=== PATIENT | male | born 1940 | race Caucasian/White ===

== ENCOUNTER 2024-08-13 07:29 | Observation (INO) ==
[2024-08-13 08:47] LABS: Activated Partial Thrombo Time 39.1 seconds (26.0-38.0); INR 2.71 (0.85-1.14)
[2024-08-13 08:59] LABS: Albumin 3.9 g/dL (3.2-5.2); Albumin/Globulin Ratio 1.6 (1-3); Creatinine, Serum 0.8 mg/dL (0.67-1.17); Globulin 2.4 g/dL (2-4); Potassium 3.9 mmol/L (3.5-5.0); Total Bilirubin 0.8 mg/dL (0.2-1.0); Total Protein 6.3 g/dL (6.4-8.9); eGFR CKD-EPI 87.8 (>60)
[2024-08-13] MEDS: Albuterol/Ipratropium NEB.SOL (2.5/0.5 MG) 3 ML NEB.SOLN INH ONE (09:23)
[2024-08-13 09:59] LABS: ABS Eosinophils 0.1 10^3/uL (0.0-0.5); ABS Lymphocytes 0.5 10^3/uL (1.0-4.8); ABS Monocytes 0.5 10^3/uL (0.0-1.1); ABS Neutrophils 4.1 10^3/uL (1.5-7.6); ABS Nucleated RBC 0.01 10^3/ul; Eosinophil % 1.3 %; Hematocrit 36.8 % (38-53); Hemoglobin 11.8 g/dL (13.2-16.3); Mean Corpuscular Hemoglobin 29.1 pg (27-33); Mean Corpuscular Hgb Conc 32.1 g/dL (31-36); Mean Corpuscular Volume 90.7 fL (80-97); Mean Platelet Volume 8.8 fL (7.5-11.2); Nucleated Red Blood Cells % 0.1 %/100WBC (0.0-0.8); Platelet Count 166 10^3/uL (150-450); Red Blood Count 4.06 10^6/uL (4.06-5.63); Red Cell Distribution Width 14.6 % (12-17); White Blood Count 5.2 10^3/uL (3.6-10.2)
[2024-08-13 10:01] LABS: High Sensitivity Troponin 1 Hr 16 pg/mL (<20)
[2024-08-13] MEDS: cefTRIAXone 1 gm/50 mL D5W 1 GM/50 ML BAG IV ONE (10:45)
[2024-08-13] MEDS: Azithromycin 500 mg/250 ml NS 500 MG/250 ML BAG IVPB ONE (11:36)
[2024-08-13] MEDS ORDERED: Warfarin per PHARMACY **NOTE FOLLOW UP SCH (12:00)
[2024-08-13] MEDS ORDERED: Sulfur Hexaflouride MICROSPHR 25 MG VIAL IV PRN (13:49)
[2024-08-13 15:20] LABS: C Reactive Protein 1.85 mg/L (<8.01)
[2024-08-13] MEDS: Furosemide 20 mg/2 ml IV VIAL IV SLOW PU ONE (16:06)
[2024-08-13] MEDS ORDERED: Warfarin DAILY REMINDER **NOTE FOLLOW UP SCH (17:00)
[2024-08-14 06:29] LABS: ABS Eosinophils 0.1 10^3/uL (0.0-0.5); ABS Lymphocytes 1.5 10^3/uL (1.0-4.8); ABS Monocytes 0.6 10^3/uL (0.0-1.1); ABS Neutrophils 5.1 10^3/uL (1.5-7.6); ABS Nucleated RBC 0.01 10^3/ul; Eosinophil % 1.5 %; Hematocrit 38.1 % (38-53); Hemoglobin 12.6 g/dL (13.2-16.3); INR 3.14 (0.85-1.14); Lymphocyte % 20.3 %; Mean Corpuscular Volume 90.7 fL (80-97); Mean Platelet Volume 8.7 fL (7.5-11.2); Nucleated Red Blood Cells % 0.1 %/100WBC (0.0-0.8); Platelet Count 173 10^3/uL (150-450); Red Cell Distribution Width 14.3 % (12-17); White Blood Count 7.4 10^3/uL (3.6-10.2)
[2024-08-14 06:48] LABS: Calcium 8.7 mg/dL (8.6-10.3); Creatinine, Serum 0.78 mg/dL (0.67-1.17); Potassium 4.1 mmol/L (3.5-5.0); eGFR CKD-EPI 88.5 (>60)
[2024-08-14] MEDS ORDERED: Lisinopril/HCTZ 20/12.5 TB(NF) PO SCH (09:00)
[2024-08-14] MEDS: Azithromycin 500 mg/250 ml NS 500 MG/250 ML BAG IVPB SCH (10:04)
[2024-08-14] MEDS: cefTRIAXone 1 gm/50 mL D5W 1 GM/50 ML BAG IV SCH (11:31)
[2024-08-15 06:20] LABS: ABS Lymphocytes 0.6 10^3/uL (1.0-4.8); ABS Monocytes 0.5 10^3/uL (0.0-1.1); ABS Neutrophils 4.7 10^3/uL (1.5-7.6); Eosinophil % 0.6 %; Hematocrit 35.8 % (38-53); Hemoglobin 11.7 g/dL (13.2-16.3); Lymphocyte % 10.5 %; Mean Corpuscular Hemoglobin 29.5 pg (27-33); Mean Corpuscular Hgb Conc 32.7 g/dL (31-36); Mean Corpuscular Volume 90.3 fL (80-97); Mean Platelet Volume 8.3 fL (7.5-11.2); Nucleated Red Blood Cells % 0.1 %/100WBC (0.0-0.8); Platelet Count 151 10^3/uL (150-450); Red Blood Count 3.96 10^6/uL (4.06-5.63); Red Cell Distribution Width 14.4 % (12-17); White Blood Count 5.9 10^3/uL (3.6-10.2)
[2024-08-15 06:27] LABS: INR 3.07 (0.85-1.14)
[2024-08-15 06:32] LABS: Calcium 9.1 mg/dL (8.6-10.3); Creatinine, Serum 0.69 mg/dL (0.67-1.17); Potassium 3.5 mmol/L (3.5-5.0); eGFR CKD-EPI 91.8 (>60)
[2024-08-15] MEDS: Iohexol 350 (CONTRAST) 500 ML MDV IV ONE (08:57)
[2024-08-15] MEDS: Furosemide 40 mg/4 ml IV VIAL IV SLOW PU ONE (10:21)
[2024-08-15] MEDS: Potassium Chlor 20 meq TAB.ER PO ONE (12:21)
[2024-08-15 14:08] VITALS: BP 138/68
== END 2024-08-15 14:16 | disposition home or self-care (01) ==
LOC: EDHOLD 07:29 → ED 07:29 → SUATTDRO 11:43 → MED 14:21
PROVIDERS: ADMIT Student in an Organized Health Care Education/Training Program; ATTEND Internal Medicine